=== PATIENT | male | born 1965 | race Caucasian/White ===

== ENCOUNTER 2025-05-26 07:36 | Outpatient (CLI) | payer BC, SELFPAY ==
--- NOTE | 2025-05-26 09:11 | P.ANES_ITS ---
Anesthesia Charges Start Date/Time Anesthesia Start Date: 05/26/25 Anesthesia Start Time: 08:22 Stop Date/Time Anesthesia Stop Date: 05/26/25 Anesthesia Stop Time: 09:07 Coding CPT Codes CPT Codes: ANES LWR INTST NDSC NOS - [id number] ([id number]) QK - TANK WAGON DRIVER 2-4 CNCRNT ANES PROC, QX - REAL ESTATE FIRM MANAGER SVC W/ MD MED DIRECTION, P3 - PATIENT W/SEVERE SYS DISEASE
--- NOTE | 2025-05-26 09:11 | W.ANESCHARGE ---
Anesthesia Charges Start Date/Time Anesthesia Start Date: 05/26/25 Anesthesia Start Time: 08:22 Stop Date/Time Anesthesia Stop Date: 05/26/25 Anesthesia Stop Time: 09:07 Coding CPT Codes CPT Codes: ANES LWR INTST NDSC NOS - [id number] ([id number]) QK - SCREEN PRINTING CLOTH SPREADER 2-4 CNCRNT ANES PROC, QX - ASPHALT TAMPER SVC W/ MD MED DIRECTION, P3 - PATIENT W/SEVERE SYS DISEASE
--- NOTE | 2025-05-26 09:13 | P.ANES_ITS ---
Anesthesia Charges Start Date/Time Anesthesia Start Date: 05/26/25 Anesthesia Start Time: 08:22 Stop Date/Time Anesthesia Stop Date: 05/26/25 Anesthesia Stop Time: 09:07 Coding CPT Codes CPT Codes: ANES LWR INTST NDSC NOS - [id number] ([id number]) P3 - PATIENT W/SEVERE SYS DISEASE, QX - SALES ADMINISTRATOR SVC W/ MD MED DIRECTION, QK - SALES AND SERVICE ADVISOR 2-4 CNCRNT ANES PROC
--- NOTE | 2025-05-26 09:13 | W.ANESCHARGE ---
Anesthesia Charges Start Date/Time Anesthesia Start Date: 05/26/25 Anesthesia Start Time: 08:22 Stop Date/Time Anesthesia Stop Date: 05/26/25 Anesthesia Stop Time: 09:07 Coding CPT Codes CPT Codes: ANES LWR INTST NDSC NOS - [id number] ([id number]) P3 - PATIENT W/SEVERE SYS DISEASE, QX - CASH APPLICATIONS MANAGER SVC W/ MD MED DIRECTION, QK - EDITING INTERN 2-4 CNCRNT ANES PROC
== END 2025-05-26 07:37 | disposition home or self-care (01) ==
PROVIDERS: PCP Surgery; Visit Provider Internal Medicine Gastroenterology
DX: Z12.11 Encounter for screening for malignant neoplasm of colon (principal); Z86.0101 Personal history of adenomatous and serrated colon polyps; D12.2 Benign neoplasm of ascending colon; D12.3 Benign neoplasm of transverse colon; D12.8 Benign neoplasm of rectum
CPT/HCPCS: 00811; 00812; 45385; 88305; J2704